=== PATIENT | male | born 1985 | race Caucasian/White ===

== ENCOUNTER 2019-10-03 02:24 | Emergency (ER) | payer SELFPAY ==
[2019-10-03 02:57] LABS: Protime INR 0.88
[2019-10-03 03:10] LABS: Absolute Lymphocytes (CBC) 2.4 K/uL (0.7-4.9); Basophils % 0.7 % (0-1.3); Lymphocytes % 51.5 % (15.3-44.8); MPV 8.2 fL (7.6-11.3); RBC Red Blood Cell Count 4.56 M/uL (4.33-5.43)
[2019-10-03 03:17] LABS: ALT/SGPT 109 U/L (12-78); AST/SGOT 54 U/L (15-37); Albumin 3.9 g/dL (3.4-5.0); Alkaline Phosphatase 41 U/L (45-117); BUN Blood Urea Nitrogen 8 mg/dL (7-18); Bicarbonate 27 mmol/L (21-32); Bilirubin Direct < 0.1 mg/dL (0-0.2); Bilirubin Total 0.2 mg/dL (0.2-1.0); Glucose Level 101 mg/dL (74-106); Magnesium 2.4 mg/dL (1.8-2.4); NT PRO-BNP 38 pg/mL (<125); Potassium 3.4 mmol/L (3.5-5.1); Protein, Total 7.2 g/dL (6.4-8.2); Sodium Level 148 mmol/L (136-145); Troponin (Emerg Dept Use Only) < 0.02 ng/mL (0.0-0.045)
[2019-10-03 03:24] LABS: Blood Morphology Comment NOT SEEN (NOT SEEN); Platelet Estimate ADEQ
[2019-10-03] MEDS ORDERED: POTASSIUM CL SA 10 MEQ TAB PO ONE (03:49)
--- NOTE | 2019-10-03 03:58 | EDPHYS ---
Physician Documentation [facility] Name: Philip Kim Age: 34 yrs Sex: Male : 1985 Arrival Date: 10/03/2019 Time: 02:31 Bed 14 Private MD: ED Physician Michele Astorga HPI: 10/02 02:39 This 34 yrs old Male presents to ER via EMS with unknown complaint. pkl 02:39 The patient or guardian reports chest pain that is located primarily in the left side pkl chest. The pain does not radiate. Associated signs and symptoms: Pertinent positives: shortness of breath. The chest pain is described as sharp. Historical: - Allergies: 02:41 No Known Allergies; fc - Home Meds: 02:41 None [Active]; fc - PMHx: 02:41 CHF; fc - PSHx: 02:41 Jaw cell; heart cath; fc - Immunization history:: Last tetanus immunization: unknown, Flu vaccine is not up to date. - Social history:: Smoking status: Patient reports the use of cigarette tobacco products, smokes one pack cigarettes per day. Patient/guardian denies using alcohol, street drugs. ROS: 02:39 Eyes: Negative for injury, pain, redness, and discharge, ENT: Negative for injury, pkl pain, and discharge, Neck: Negative for injury, pain, and swelling. 02:39 Cardiovascular: Positive for chest pain. 02:39 Respiratory: Positive for shortness of breath. 02:39 Abdomen/GI: Negative for abdominal pain, nausea, vomiting, and diarrhea. 02:39 Back: Negative for acute changes. 02:39 : Negative for urinary symptoms. 02:39 MS/extremity: Negative for acute changes. 02:39 Skin: Negative for rash. 02:39 Neuro: Negative for altered mental status. Exam: 02:39 Head/Face: Normocephalic, atraumatic. Eyes: Pupils equal round and reactive to light, pkl extra-ocular motions intact. Lids and lashes normal. Conjunctiva and sclera are non-icteric and not injected. Cornea within normal limits. Periorbital areas with no swelling, redness, or edema. ENT: Nares patent. No nasal discharge, no septal abnormalities noted. Tympanic membranes are normal and external auditory canals are clear. Oropharynx with no redness, swelling, or masses, exudates, or evidence of obstruction, uvula midline. Mucous membranes moist. Neck: Trachea midline, no thyromegaly or masses palpated, and no cervical lymphadenopathy. Supple, full range of motion without nuchal rigidity, or vertebral point tenderness. No Meningismus. Chest/axilla: Normal chest wall appearance and motion. Nontender with no deformity. No lesions are appreciated. Cardiovascular: Regular rate and rhythm with a normal S1 and S2. No gallops, murmurs, or rubs. Normal PMI, no JVD. No pulse deficits. Respiratory: Lungs have equal breath sounds bilaterally, clear to auscultation and percussion. No rales, rhonchi or wheezes noted. No increased work of breathing, no retractions or nasal flaring. Abdomen/GI: Soft, non-tender, with normal bowel sounds. No distension or tympany. No guarding or rebound. No evidence of tenderness throughout. Back: No spinal tenderness. No costovertebral tenderness. Full range of motion. Skin: Warm, dry with normal turgor. Normal color with no rashes, no lesions, and no evidence of cellulitis. MS/ Extremity: Pulses equal, no cyanosis. Neurovascular intact. Full, normal range of motion. Neuro: Awake and alert, GCS 15, oriented to person, place, time, and situation. Cranial nerves II-XII grossly intact. Motor strength 5/5 in all extremities. Sensory grossly intact. Cerebellar exam normal. Normal gait. Vital Signs: 02:17 BP 134 / 91; Pulse 90; Resp 20; Temp 98.2(O); Pulse Ox 96% on R/A; Weight 83.91 kg (R); fc Height 5 ft. 9 in. (175.26 cm) (R); Pain 3/10; 04:15 BP 130 / 92; Pulse 85; Resp 18; Temp 98.6; Pulse Ox 98% on R/A; ao 02:17 Body Mass Index 27.32 (83.91 kg, 175.26 cm) fc MDM: 02:34 Patient medically screened. pkl 03:56 Data reviewed: vital signs, nurses notes, lab test result(s), EKG, radiologic studies, pkl plain films. 10/02 02:32 Order name: Basic Metabolic Panel; Complete Time: 03:32 ar5 10/02 02:32 Order name: CBC with Diff; Complete Time: 03:32 ar5 10/02 02:32 Order name: LFT's; Complete Time: 03:32 ar5 10/02 02:32 Order name: Magnesium; Complete Time: 03:32 ar5 10/02 02:32 Order name: NT PRO-BNP; Complete Time: 03:32 ar5 10/02 02:32 Order name: PT-INR; Complete Time: 03:32 ar10/02 02:32 Order name: Troponin (emerg Dept Use Only); Complete Time: 03:32 ar5 10/02 02:32 Order name: EKG; Complete Time: 02:33 ar5 10/02 02:35 Order name: D-Dimer; Complete Time: 03:32 pkl 10/02 02:35 Order name: UDS pkl 10/02 03:23 Order name: Manual Differential; Complete Time: 03:32 EDMS 10/02 03:37 Order name: CXR XRAY fc 10/02 02:32 Order name: Cardiac monitoring; Complete Time: 03:05 ar10/02 02:32 Order name: EKG - Nurse/Tech; Complete Time: 02:32 ar5 10/02 02:32 Order name: IV Saline Lock; Complete Time: 03:05 ar10/02 02:32 Order name: Labs collected and sent; Complete Time: 03:05 10/02 02:32 Order name: O2 Per Protocol; Complete Time: 03:05 ar10/02 02:32 Order name: O2 Sat Monitoring; Complete Time: 03:05 ar5 Administered Medications: 03:52 Drug: K-Dur 20 mEq Route: PO; ao 03:55 Follow up: Response: No adverse reaction ao Disposition: 10/03/19 03:57 Discharged to Home. Impression: Chest pain. Elevated liver functions. - Condition is Stable. - Medication Reconciliation Form, Thank You Letter, Antibiotic Education, Prescription Opioid Use form. - Follow up: Private Physician; When: 2 - 3 days; Reason: Re-evaluation by your physician. - Problem is new. - Symptoms have improved. Signatures: Dispatcher [employer] Michele Cox MD MD pkl Chretien, Felicia, RN RN fc Ortiz, Alex RN RN Soheila Sheehan ar5 Corrections: (The following items were deleted from the chart) 02:48 02:33 Chest Single View+RAD.RAD.BRZ ordered. EDMS EDMS 04:18 03:57 10/03/2019 03:57 Discharged to Home. Impression: Chest pain. Elevated liver ao functions. Condition is Stable. Forms are Medication Reconciliation Form, Thank You Letter, Antibiotic Education, Prescription Opioid Use. Follow up: Private Physician; When: 2 - 3 days; Reason: Re-evaluation by your physician. Problem is new. Symptoms have improved. pkl
--- NOTE | 2019-10-03 03:58 | ER ---
Nurse's Notes [facility] Name: Philip Kim Age: 34 yrs Sex: Male : 1985 Arrival Date: 10/03/2019 Time: 02:31 Bed 14 Private MD: Diagnosis: Chest pain. Elevated liver functions Presentation: 10/02 02:17 Chief complaint: Patient states: that he has been having chest pain to left side x 2 fc days. Tonight at 0145 is got worse along with shortness of breath. Coronavirus screen: Proceed with normal triage. Ebola Screen: Patient negative for fever greater than or equal to 101.5 degrees Fahrenheit, and additional compatible Ebola Virus Disease symptoms Patient denies exposure to infectious person. Patient denies travel to an Ebola-affected area in the 21 days before illness onset. Initial Sepsis Screen: Does the patient meet any 2 criteria? No. Patient's initial sepsis screen is negative. Does the patient have a suspected source of infection? No. Patient's initial sepsis screen is negative. Risk Assessment: Do you want to hurt yourself or someone else? Patient reports no desire to harm self or others. Onset of symptoms was October 01, 2019. Care prior to arrival: Medication(s) given: ASA, 81 mg, x 4, Nitroglycerin, 0.4 mg SL x 2, IV initiated. 18 GA, in the left forearm. Transition of care: [employer] 02:17 Method Of Arrival: EMS: [facility] 02:17 Acuity: REJI 3 fc Historical: - Allergies: 02:41 No Known Allergies; fc - Home Meds: 02:41 None [Active]; fc - PMHx: 02:41 CHF; fc - PSHx: 02:41 Jaw cell; heart cath; fc - Immunization history:: Last tetanus immunization: unknown, Flu vaccine is not up to date. - Social history:: Smoking status: Patient reports the use of cigarette tobacco products, smokes one pack cigarettes per day. Patient/guardian denies using alcohol, street drugs. Screenin:17 Abuse screen: Denies threats or abuse. Nutritional screening: No deficits noted. Tuberculosis screening: No symptoms or risk factors identified. Fall Risk None identified. Assessment: 03:05 General: Appears in no apparent distress. comfortable, Behavior is calm, cooperative, ao appropriate for age. Pain:. Neuro: Level of Consciousness is awake, alert, obeys commands. Cardiovascular: No deficits noted. Respiratory: Airway is patent Respiratory effort is even, unlabored, Respiratory pattern is regular, symmetrical. GI: Abdomen is non-distended. : No deficits noted. EENT: No deficits noted. Derm: Skin is intact, Skin is pink, warm \T\ dry. normal, Skin temperature is warm. Musculoskeletal: Circulation, motion, and sensation intact. Range of motion: intact in all extremities. 04:15 Reassessment: DC instructions given to patient and law enforcement. Patient agree with ao POC and to follow up. Vital Signs: 02:17 BP 134 / 91; Pulse 90; Resp 20; Temp 98.2(O); Pulse Ox 96% on R/A; Weight 83.91 kg (R); fc Height 5 ft. 9 in. (175.26 cm) (R); Pain 3/10; 04:15 BP 130 / 92; Pulse 85; Resp 18; Temp 98.6; Pulse Ox 98% on R/A; ao 02:17 Body Mass Index 27.32 (83.91 kg, 175.26 cm) ED Course: 02:17 Arm band placed on Patient placed in an exam room, on a stretcher. fc 02:17 Patient has correct armband on for positive identification. Bed in low position. Call light in reach. Side rails up X2. marine driller on. Pulse ox on. NIBP on. 02:17 Maintain EMS IV. Dressing intact. Good blood return noted. Site clean \T\ dry. Gauge \T\ fc site: 18 gauge to left forearm. 02:31 Patient arrived in ED. fc 02:34 Michele Astorga MD is Attending Physician. pkl 02:35 Stephane Nye, JESSI is Primary Nurse. ao 02:37 Triage completed. fc 03:48 CXR XRAY In Process Unspecified. EDMS 04:17 No provider procedures requiring assistance completed. IV discontinued, intact, ao bleeding controlled, No redness/swelling at site. Pressure dressing applied. Administered Medications: 03:52 Drug: K-Dur 20 mEq Route: PO; ao 03:55 Follow up: Response: No adverse reaction ao Outcome: 03:57 Discharge ordered by . pkl 04:17 Discharged to Law Enforcement ao 04:17 Condition: stable 04:17 Discharge instructions given to patient, police, Instructed on discharge instructions, follow up and referral plans. Demonstrated understanding of instructions, follow-up care, medications. 04:18 Patient left the ED. ao Signatures: Dispatcher [employer] EDMichele Franklin MD MD pkl Chretien, Felicia, RN RN Stephane Sierra RN RN ao Corrections: (The following items were deleted from the chart) 02:48 02:46 In radiology for Chest Single View+RAD.RAD.BRZ. ED EDMS
[2019-10-03 04:22] VITALS: BP 130/92; TEMP 98.6; O2SAT 98
[2019-10-03 04:27] LABS: Barbiturates NEGATIVE (NEGATIVE); Benzodiazepines NEGATIVE (NEGATIVE); Cocaine NEGATIVE (NEGATIVE); METHAMPHETAM NEGATIVE (NEGATIVE); Methadone NEGATIVE (NEGATIVE); Opiates NEGATIVE (NEGATIVE); Phencyclidine NEGATIVE (NEGATIVE); THC Cannibis POSITIVE (NEGATIVE)
--- NOTE | 2019-10-03 08:32 | RAD REPORT ---
EXAM DESCRIPTION: RAD - Chest Single View - 10/03/2019 3:47 am CLINICAL HISTORY: CHEST PAIN Chest pain. COMPARISON: No comparisons FINDINGS: Portable technique limits examination quality. The lungs are grossly clear. The heart is normal in size. No displaced fractures. IMPRESSION: No acute intrathoracic process suspected.
--- NOTE | 2019-10-03 11:51 | EKG ---
Test Date: 2019-10-03 Test Time: 02:25:45 [place]aker Continuous Churn: MEASUREMENT RESULTS: Intervals: Rate: 86 VA: 164 QRSD: 102 QT: 360 QTc: 430 [place]: P: 30 VA: 164 QRS: 44 T: 56 INTERPRETIVE STATEMENTS: Normal sinus rhythm Normal ECG No previous ECG available for comparison Electronically Signed On 10-03-19 11:50:08 CDT by Gerry Edwards
== END 2019-10-03 04:18 | disposition home or self-care (01) ==
LOC: ER 02:24
DX: R07.9 Chest pain, unspecified (principal); R94.5 Abnormal results of liver function studies; F17.210 Nicotine dependence, cigarettes, uncomplicated
CPT/HCPCS: 36415; 71045; 80048; 80076; 80307; 83735; 83880; 84484; 85025; 85379; 85610; 93005; 99284

== ENCOUNTER 2020-10-14 22:48 | Emergency (ER) | payer SELFPAY ==
[2020-10-14] MEDS ORDERED: LIDOCAINE 1% MPF 5 ML VIAL ONE (23:18)
[2020-10-14] MEDS ORDERED: HYDROCODONE/APAP 7.5/325 MG TAB ONE (23:19)
[2020-10-14] MEDS ORDERED: TETANUS & DIPHTHERIA TOX,ADULT 0.5 ML VIAL ONE (23:19)
--- NOTE | 2020-10-14 23:57 | ER ---
Nurse's Notes [facility] Name: Philip Kim Age: 35 yrs Sex: Male : 1985 Arrival Date: 10/14/2020 Time: 22:51 Bed 6 Private MD: Diagnosis: Laceration without foreign body of left forearm Presentation: 10/14 22:51 Chief complaint: EMS states: while installing some wiring he cut himself with a box rr5 cutter approximate 1/2 cm cut wound on his left forearm. he complaints that he cannot teleprinter firmly or put pressure . Coronavirus screen: Client denies travel out of the [place] in the last 14 days. At this time, the client does not indicate any symptoms associated with coronavirus-19. Ebola Screen: Patient negative for fever greater than or equal to 101.5 degrees Fahrenheit, and additional compatible Ebola Virus Disease symptoms Patient denies exposure to infectious person. Patient denies travel to an Ebola-affected area in the 21 days before illness onset. Complicating Factors: There are no complicating factors for this patient. Initial Sepsis Screen: Does the patient meet any 2 criteria? No. Patient's initial sepsis screen is negative. Does the patient have a suspected source of infection? No. Patient's initial sepsis screen is negative. Risk Assessment: Do you want to hurt yourself or someone else? Patient reports no desire to harm self or others. Onset of symptoms was October 14, 2020. 22:51 Method Of Arrival: EMS: [facility] rr5 22:51 Acuity: REJI 3 rr5 Historical: - Allergies: 22:54 No Known Allergies; rr5 - Home Meds: 22:54 None [Active]; rr5 - PMHx: 22:54 CHF; rr5 - PSHx: 22:54 None; rr5 - Immunization history:: Adult Immunizations not up to date, Last tetanus immunization: unknown. - Social history:: Smoking status: Patient reports the use of cigarette tobacco products, smokes one pack cigarettes per day. Patient/guardian denies using street drugs. Screenin:56 Abuse screen: Denies threats or abuse. Denies injuries from another. Nutritional rr5 screening: No deficits noted. Tuberculosis screening: No symptoms or risk factors identified. Fall Risk None identified. Total Granados Fall Scale indicates No Risk (0-24 pts). Assessment: 22:55 General: Appears in no apparent distress. comfortable, Behavior is calm, cooperative, rr5 appropriate for age. Pain: Complains of pain in dorsal aspect of left forearm Pain currently is 3 out of 10 on a pain scale. Quality of pain is described as aching, Pain began suddenly, Is intermittent. Neuro: Level of Consciousness is awake, alert, obeys commands, Oriented to person, place, time. Cardiovascular: Capillary refill < 3 seconds Patient's skin is warm and dry. Pulses are palpable in left radial artery. Respiratory: Airway is patent is compromised Respiratory effort is even, unlabored, Respiratory pattern is. Derm: Skin temperature is warm Wound noted dorsal aspect of left forearm Wound is cut wound approximate 1/2 cm. Musculoskeletal: Capillary refill < 3 seconds. Injury Description: Laceration sustained to dorsal aspect of left forearm is clean, 0.5 to 2.5 cm long, not bleeding. 10/15 00:06 Reassessment: Patient appears in no apparent distress at this time. Patient is alert, rr5 oriented x 3, equal unlabored respirations, skin warm/dry/pink. discharge instruction given and explained without complaints made. Vital Signs: 10/14 22:51 BP 132 / 83; Pulse 80; Resp 16; Temp 99; Pulse Ox 100% ; Weight 74.84 kg; Height 5 ft. rr5 9 in. (175.26 cm); Pain 3/10; 10/15 00:04 BP 137 / 85; Pulse 75; Resp 19; Pulse Ox 98% ; rr5 10/14 22:51 Body Mass Index 24.37 (74.84 kg, 175.26 cm) rr5 ED Course: 10/14 22:51 Patient arrived in ED. rr5 22:54 Triage completed. rr5 22:55 Arm band placed on right wrist. rr5 22:57 Patient has correct armband on for positive identification. Bed in low position. Call rr5 light in reach. 23:00 Guillermo Li PA is PHCP. cp 23:00 Guillermo Gonzales MD is Attending Physician. cp 23:02 patient's girlfriend Katlyn called to leave her number. [phone]/ She asks that we eb call her at least 15 to 20 minutes before discharge so she can come get him/. 23:09 Car French, RN is Primary Nurse. rr5 23:10 Wound care: to laceration located on dorsal aspect of left forearm was cleaned with rr5 Hibiclens, dressed with 4X4s, Patient tolerated well. 23:29 XRAY Forearm LEFT In Process Unspecified. EDMS 23:37 X-ray completed. Portable x-ray completed in exam room. Patient tolerated procedure mh1 well. 23:50 Assist provider with laceration repair on left arm and dorsal aspect of left forearm rr5 that was 2.5 cm. or less using sutures. Set up tray. Performed by Guillermo SPEAR Dressed with 4X4s, Kerlix, Neosporin, Patient tolerated well. 23:50 Patient did not have IV access during this emergency room visit. rr5 Administered Medications: 23:09 Drug: Hydrocodone-Acetaminophen (7.5 mg-325 mg) 1 tabs {Note: rass 0.} Route: PO; rr5 10/15 00:06 Follow up: Response: No adverse reaction; RASS: Alert and Calm (0) rr5 10/14 23:10 Drug: Tetanus-Diphtheria Toxoid Adult 0.5 ml {Rod Piler: [employer]. Exp: rr5 07/02/2022. Lot #: [id number]. } Route: IM; Site: left deltoid; 10/15 00:06 Follow up: Response: No adverse reaction rr5 10/14 23:50 Drug: Lidocaine-Epinephrine -1%: (1:100,000) 5 ml Volume: 20 ml; Route: Infiltration; rr5 10/15 00:06 Follow up: Response: No adverse reaction rr5 Outcome: 10/14 23:57 Discharge ordered by MD. colby 10/15 00:04 Discharged to home ambulatory. rr5 Condition: stable Discharge instructions given to patient, Instructed on discharge instructions, follow up and referral plans. medication usage, Demonstrated understanding of instructions, follow-up care, medications, Prescriptions given X 1. 00:07 Patient left the ED. rr5 Signatures: Dispatcher [employer] EDMS [facility] Guillermo Li PA PA cp Botello, Elizabeth eb Roque, Raymond, RN RN rr5
--- NOTE | 2020-10-14 23:57 | EDPHYS ---
Physician Documentation [facility] Name: Philip Kim Age: 35 yrs Sex: Male : 1985 Arrival Date: 10/14/2020 Time: 22:51 Bed 6 Private MD: ED Physician Guillermo Gonzales HPI: 10/14 23:10 This 35 yrs old Male presents to ER via EMS with complaints of Laceration To cp Arm. 23:10 The patient has a laceration occurred at work, The injury was accidental, using box cp cutter. The laceration(s) is(are) located on the volar side left forearm. Onset: The symptoms/episode began/occurred just prior to arrival. Associated signs and symptoms: Pertinent positives: heavy bleeding, Pertinent negatives: numbness distal to injury, suspected foreign body. Historical: - Allergies: 22:54 No Known Allergies; rr5 - Home Meds: 22:54 None [Active]; rr5 - PMHx: 22:54 CHF; rr5 - PSHx: 22:54 None; rr5 - Immunization history:: Adult Immunizations not up to date, Last tetanus immunization: unknown. - Social history:: Smoking status: Patient reports the use of cigarette tobacco products, smokes one pack cigarettes per day. Patient/guardian denies using street drugs. ROS: 23:12 Skin: Positive for laceration(s), of the volar side left forearm. cp 23:12 Constitutional: Negative for fever. cp 23:12 Neuro: Negative for numbness, weakness. 23:12 All other systems are negative. Exam: 23:15 Constitutional: The patient appears in no acute distress, alert, awake, non-toxic, well cp developed, well nourished, uncomfortable. 23:15 Head/Face: Normocephalic, atraumatic. cp 23:15 Chest/axilla: Inspection: normal. 23:15 Cardiovascular: Rate: normal. 23:15 Respiratory: the patient does not display signs of respiratory distress, Respirations: normal, no use of accessory muscles, labored breathing, is not present. 23:15 Abdomen/GI: Exam negative for discomfort, distension, guarding, Inspection: abdomen appears normal. 23:15 Musculoskeletal/extremity: Extremities: grossly normal except: noted in the volar side left forearm: laceration, pain, swelling, tenderness, ROM: limited passive range of motion due to pain, in the left hand and left wrist, Pulses: noted to be 2+ in the left radial artery, Sensation intact. Tendon exam: specific tendon testing normal through active and passive range of motion Vital Signs: 22:51 BP 132 / 83; Pulse 80; Resp 16; Temp 99; Pulse Ox 100% ; Weight 74.84 kg; Height 5 ft. rr5 9 in. (175.26 cm); Pain 3/10; 10/15 00:04 BP 137 / 85; Pulse 75; Resp 19; Pulse Ox 98% ; rr5 10/14 22:51 Body Mass Index 24.37 (74.84 kg, 175.26 cm) rr5 Laceration: 10/14 23:55 Wound Repair of 2cm ( 0.8in ) subcutaneous laceration to volar side of left forearm. cp Linear shaped.. Distal neuro/vascular/tendon intact. Anesthesia: Local anesthetic administered with 6 mls of 1% lidocaine w/ Epi. Wound prep: Moderate cleansing by me, Wound irrigation by me. Skin closed with 2 4-0 Prolene using simple sutures and sterile technique. Dressed with Bacitracin, 4x4's. Patient tolerated well. MDM: 23:03 Patient medically screened. cp 23:20 Differential diagnosis: superficial laceration, tendon injury, vascular injury. cp 23:57 Data reviewed: vital signs, nurses notes, radiologic studies, plain films, and as a cp result, I will discharge patient. 23:57 Test interpretation: by ED physician or midlevel provider: xrays of left forearm cp negative for fracture. Counseling: I had a detailed discussion with the patient and/or guardian regarding: the historical points, exam findings, and any diagnostic results supporting the discharge/admit diagnosis, radiology results, to return to the emergency department if symptoms worsen or persist or if there are any questions or concerns that arise at home. Response to treatment: the patient's symptoms have markedly improved after treatment, and as a result, I will discharge patient. 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 Exp: rr5 07/02/2022. Lot #: [id number]. } Route: IM; Site: left deltoid; 10/15 00:06 Follow up: Response: No adverse reaction rr5 10/14 23:50 Drug: Lidocaine-Epinephrine -1%: (1:100,000) 5 ml Volume: 20 ml; Route: Infiltration; rr5 10/15 00:06 Follow up: Response: No adverse reaction rr5 Disposition: 00:15 Chart complete. cp 07:01 Co-signature as Attending Physician, Guillermo Gonzales MD I agree with the assessment and [facility] plan of care. Disposition: 10/14/20 23:57 Discharged to Home. Impression: Laceration without foreign body of left forearm. - Condition is Stable. - Discharge Instructions: Laceration Care, Adult. - Prescriptions for Keflex 500 mg Oral Capsule - take 1 capsule by ORAL route every 8 hours for 10 days; 30 capsule. - Medication Reconciliation Form, Thank You Letter, Antibiotic Education, Prescription Opioid Use form. - Follow up: Private Physician; When: 7 - 10 days; Reason: Staple/Suture removal. - Problem is new. - Symptoms have improved. Signatures: Dispatcher [employer] [facility] Guillermo Gonzales MD MD cha Page, Corey, PA PA cp Roque, Raymond, RN RN rr5 Corrections: (The following items were deleted from the chart) 00:07 10/14 23:57 10/14/2020 23:57 Discharged to Home. Impression: Laceration without foreign rr5 body of left forearm. Condition is Stable. Forms are Medication Reconciliation Form, Thank You Letter, Antibiotic Education, Prescription Opioid Use. Follow up: Private Physician; When: 7 - 10 days; Reason: Staple/Suture removal. Problem is new. Symptoms have improved. cp
[2020-10-14] MEDS ORDERED: LIDOCAINE 1% W/EPI 1:100,000 MDV 20 ML VIAL ONE (23:58)
[2020-10-15 00:19] VITALS: TEMP 99
[2020-10-15 00:20] VITALS: BP 137/85; O2SAT 98
--- NOTE | 2020-10-15 08:42 | RAD REPORT ---
EXAM DESCRIPTION: RAD - Forearm Left - 10/14/2020 11:34 pm CLINICAL HISTORY: laceration;Pain COMPARISON: No comparisons FINDINGS: Laceration is seen along the palmar aspect of the distal forearm. No fracture or radiopaqu e foreign body evident. No soft tissue gas.
== END 2020-10-15 00:07 | disposition home or self-care (01) ==
LOC: ER 22:48
PROC: 0HQEXZZ Repair Left Lower Arm Skin, External Approach (ICD-10-PCS; principal; 2020-10-14)
DX: S51.812A Laceration without foreign body of left forearm, initial encounter (principal); W26.0XXA Contact with knife, initial encounter; Y99.0 Civilian activity done for income or pay; F17.210 Nicotine dependence, cigarettes, uncomplicated; I50.9 Heart failure, unspecified
CPT/HCPCS: 90714

== ENCOUNTER 2021-10-10 01:54 | Emergency (ER) | payer SELFPAY ==
--- OUTSIDE RECORDS SUMMARY | 2021-10-10 01:57 | XMS REPORT | Continuity of Care Document ---
:1985 Author Organization [facility] t Address [address] [place] [address] Care Team Providers Name Role Phone Pcp, Does Not Have A Primary Care Physician Doctor Unassigned, Name Attending Clinician Unavailable Poonam Liam RODRIGUEZ Attending Clinician POONAM B Attending Clinician Unavailable Problems This patient has no known problems. Allergies, Adverse Reactions, Alerts Allergy Allergy Status Severity Reaction(s) Onset Inactive Treating Comm ents Source Name Type Date Date Clinician NO KNOWN Drug Active Univers ALLERGIE Class ity of S [facility] Social History Social Habit Start Date Stop Date Quantity Comments Source Exposure to Not sure [facility] SARS-CoV-2 (event) [facility] Sex Assigned At [address] 1985 [facility] 00:00:00 00:00:00 [facility] Smoking Status Start Date Stop Date Source Unknown if ever smoked [facility] Medications Ordered Filled Start Stop Current Ordering Indication Dosage Frequency Signature Comments Components Source Medication Medication Date Date Medication? Clinician (SIG) Name Name No known No Univers medications -30 ity of 01:05: [place] [facility] No known No [facility] No known No [facility] Vital Signs Vital Name Observation Time Observation Value Comments Source Systolic blood 2020-12-27 07:00:00 129 mm[Hg] Univer sity of pressure [facility] Diastolic blood 2020-12-27 07:00:00 74 mm[Hg] Unive rsity of [facility] Heart rate 2020-12-27 07:00:00 58 /min [facility] Respiratory rate 2020-12-27 07:00:00 17 /min [facility] Oxygen saturation in 2020-12-27 07:00:00 98 /min [facility] Arterial blood by [facility] Pulse oximetry [place] Body height 2020-12-27 06:04:00 175.3 cm [facility] Body weight 2020-12-27 06:04:00 79.379 kg [facility] BMI 2020-12-27 06:04:00 25.84 kg/m2 [facility] Procedures Procedure Date / Time Performed Performing Clinician Sourc e REFERRAL- 2021-06-08 06:01:00 Doctor Steph, No Deyaniraer [facility] REQUEST/RESPONSE Name [facility] XR CHEST 1 VW 2020-12-27 06:30:22 Papo Ortiz [facility] LIPASE 2020-12-27 06:10:00 Papo Ortiz [facility] TROPONIN I 2020-12-27 06:10:00 Papo Ortiz [facility] COMP. METABOLIC PANEL 2020-12-27 06:10:00 Papo Ortiz [facility] ([id number]) [facility] CBC WITH DIFF 2020-12-27 06:10:00 Papo Ortiz [facility] CONSENT/REFUSAL FOR 2020-12-27 05:55:06 [facility] Name [facility] TREATMENT NOTICE OF PRIVACY 2020-12-27 05:54:10 Doctor Unassigned, No Univ [facility] PRACTICES Name [facility] Encounters Start End Encounter Admission Attending Care Care Encounter Source Date/Time Date/Time Type Type Clinicians Facility Department ID 2021-06-08 2021-06-08 Orders Doctor GROVES [id number] Univers 00:00:00 00:00:00 Only UnassSEAN lawson [id number] ity of [place] [facility] [id number] Anurag as [id number] [facility] 009 Branch 2020-12-27 2020-12-27 Emergency JOSÉ Ortiz [id number] Univers 00:59:00 02:27:00 Papo Parsons [id number] i evin [facility] [id number] [facility] [id number] [place] [id number] Branch 2020-12-27 2020-12-27 Emergency X POONAM LASPENSER ERT [id number] Univers 00:59:00 00:59:00 PAPO ity of [facility] Results Test Description Test Time Test Comments Results Result Comments Source TROPONIN I 2020-12-27 06:57:02 Test Item Value Reference Range Interpretation Comme nts TROPONIN I (test code = 0.003 ng/mL See_Comment [Au tomated message] The 9887865179) system which ge nerated this result tra nsmitted reference range : <=0.034. The reference r dung was not used to int erpret this result as normal/abnormal . BIBI (test code = BIBI) Reference (Normal) Range (defined by the 99th percentile reference limit): <= 0.034 ng/mL Note: Cardiac troponin begins to rise 3-4 hours after the onset of ischemia. Repeat in 4-6 hours if the sample was drawn within 3-4 hours of the onset of the symptom and found normal. Diagnosis of myocardial injury is made with acute changes in cTn concentrations with at least one serial sample above the 99th percentile upper reference limit (URL), taken together with the patient's clinical presentation. Biotin has been reported to cause a negative bias, interpret results relative to patient's use of biotin. Lab Interpretation Normal (test code = 42945-2) [id number] 06:57:02 Test Item Value Reference Range Interpretation Comments TROPONIN I (test code = 0.003 ng/mL See_Comment [Au tomated 7293104304) message] The sy stem which generated this result transmitted reference range : <=0.034. The reference range was not used to interpret this result as normal/abnormal . BIBI (test code = BIBI) Lab Interpretation Normal (test code = 42224-1) [facility] ([id number][facility]2020-12-27 06:35:01 Test Item Value Reference Range Interpretation Comments NA (test code = 138 mmol/L 135-145 7320201151) K (test code = 3.9 mmol/L 3.5-5.0 7345102361) CL (test code = 105 mmol/L 98-108 7310515363) CO2 TOTAL (test code = 27 mmol/L 23-31 9436471001) AGAP (test code = 2-16 0774411480) BUN (test code = 18 mg/dL 7-23 0097092166) GLUCOSE (test code = 108 mg/dL 70-110 0449551298) CREATININE (test code = 0.99 mg/dL 0.60-1.25 6700116279) TOTAL BILI (test code = 0.3 mg/dL 0.1-1.8 1706833524) CALCIUM (test code = 9.6 mg/dL 8.6-10.6 4395178187) T PROTEIN (test code = 7.4 g/dL 6.3-8.2 4154569102) ALBUMIN (test code = 4.4 g/dL 3.5-5.0 8885353958) ALK PHOS (test code = 49 U/L 34-122 3323689840) ALTv (test code = 107 U/L 5-50 H 1742-6) AST(SGOT) (test code = 64 U/L 13-40 H 0796488286) eGFR (test code = mL/min/1.73m2 8942259296) BIBI (test code = BIBI) Association of Glomerular Filtration Rate (GFR) and Staging of Kidney Disease* + --+ --+ ------+| GFR (mL/min/1.73 m2) ?| With Kidney Damage ?| ?Without Kidney Damage+ --------+ --------+ +| ?>90 ?| ?Stage one ?| ? Normal ?+ ---+ ---+ -------+| ?60-89 ?| ?Stage two ?| ? Decreased GFR ? + --+ --+ ------+| ?30-59 ?| ?Stage three ?| ? Stage three ? + --+ --+ ------+| ?15-29 ?| ?Stage four ? | ? Stage four ?+ ---+ ---+ -------+| ?<15 (or dialysis) ? ?| ?Stage five ? | ? Stage five ?+ ---+ ---+ -------+ *Each stage assumes the associated GFR level has been in effect for at least three months. ?Stages 1 to 5, with or without kidney disease, indicate chronic kidney disease. Notes: Determination of stages one and two (with eGFR >59mL/min/1.73 m2) requires estimation of kidney damage for at least three months as defined by structural or functional abnormalities of the kidney, manifested by either:Pathological abnormalities or Markers of kidney damage (including abnormalities in the composition of the blood or urine or abnormalities in imaging tests). Lab Interpretation Abnormal (test code = 13151-9) [facility] ([id number])2020-12-27 06:35:01 Test Item Value Reference Range Interpretation Comments NA (test code = 3580848343) 138 mmol/L 135-145 K (test code = 7577698034) 3.9 mmol/L 3.5-5.0 CL (test code = 2824871223) 105 mmol/L 98-108 CO2 TOTAL (test code = 5783173227) 27 mmol/L 23-31 AGAP (test code = 9728956815) 2-16 BUN (test code = 4862165396) 18 mg/dL 7-23 GLUCOSE (test code = 9671312738) 108 mg/dL 70-110 CREATININE (test code = 0.99 mg/dL 0.60-1.25 3104608532) TOTAL BILI (test code = 0.3 mg/dL 0.1-1.1 6742052924) CALCIUM (test code = 8456461811) 9.6 mg/dL 8.6-10.6 T PROTEIN (test code = 5176914418) 7.4 g/dL 6.3-8.2 ALBUMIN (test code = 1884270811) 4.4 g/dL 3.5-5.0 ALK PHOS (test code = 7277549714) 49 U/L 34-122 ALTv (test code = 1742-6) 107 U/L 5-50 H AST(SGOT) (test code = 6124654515) 64 U/L 13-40 H eGFR (test code = 9872182207) mL/min/1.73m2 BIBI (test code = BIBI) Lab Interpretation (test code = Abnormal 33133-0) [facility] [id number] 06:34:26 Test Item Value Reference Range Interpretation Comments LIPASE (test code = 3551921796) 75 U/L 0-220 Lab Interpretation (test code = Normal 77510-7) [facility] [id number] 06:34:26 Test Item Value Reference Range Interpretation Comments LIPASE (test code = 0427155092) 75 U/L 0-220 Lab Interpretation (test code = Normal 37903-3) [facility] WITH [id number] 06:17:22 Test Item Value Reference Range Interpretation Comments WBC (test code = See_Comment [Automated 6690-2) message] The sy stem which generated this result transmitted reference range : 4.20 - 10.70 10*3/?L. The reference range was not used to interpret this result as normal/abnormal . RBC (test code = See_Comment [Automated 789-8) message] The sy stem which generated this result transmitted reference range : 4.26 - 5.52 10*6/?L. The reference range was not used to interpret this result as normal/abnormal . HGB (test code = 14.5 g/dL 12.2-16.4 718-7) HCT (test code = 43.8 % 38.4-49.3 4544-3) MCV (test code = 93.2 fL 81.7-95.6 787-2) MCH (test code = 30.9 pg 26.1-32.7 785-6) MCHC (test code = 33.1 g/dL 31.2-35.0 786-4) RDW-SD (test code = 43.8 fL 38.5-51.6 56764-2) RDW-CV (test code = 12.7 % 12.1-15.4 788-0) PLT (test code = See_Comment L [Automated 777-3) message] The sy stem which generated this result transmitted reference range : 150 - 328 10*3/ ?L. The reference r dung was not used to interpret this result as normal/abnormal . MPV (test code = 9.9 fL 9.8-13.0 52525-7) NRBC/100 WBC (test See_Comment [Automat ed code = 3207436123) message] The system which generated this result transmitted reference range : 0.0 - 10.0 /100 WBCs. The refer ence range was not u sed to interpret th is result as normal/abnormal . NRBC x10^3 (test code <0.01 See_Comment [Auto mated = 5661233238) message] The s ystem which generated this result transmitted reference range : 10*3/?L. The reference range was not used to interpret this result as normal/abnormal . GRAN MAT (NEUT) % 48.6 % (test code = 770-8) IMM GRAN % (test code 0.40 % = 0033981870) LYMPH % (test code = 39.9 % 736-9) MONO % (test code = 7.4 % 5905-5) EOS % (test code = 3.2 % 713-8) BASO % (test code = 0.5 % 706-2) GRAN MAT x10^3(ANC) 3.98 10*3/uL 1.99-6.95 (test code = 5439546732) IMM GRAN x10^3 (test 0.03 10*3/uL 0.00-0.06 code = 1236246372) LYMPH x10^3 (test code 3.27 10*3/uL 1.09-3.23 H = 731-0) MONO x10^3 (test code 0.61 10*3/uL 0.36-1.02 = 742-7) EOS x10^3 (test code = 0.26 10*3/uL 0.06-0.53 711-2) BASO x10^3 (test code 0.04 10*3/uL 0.01-0.09 = 704-7) Lab Interpretation Abnormal (test code = 71970-8) [facility] WITH [id number] 06:17:22 Test Item Value Reference Range Interpretation Comments WBC (test code = See_Comment [Automated 90-2) message] The sy stem which generated this result transmitted reference range : 4.20 - 10.70 10*3/?L. The reference range was not used to interpret this result as normal/abnormal . RBC (test code = See_Comment [Automated 099-8) message] The sy stem which generated this result transmitted reference range : 4.26 - 5.52 10*6/?L. The reference range was not used to interpret this result as normal/abnormal . HGB (test code = 14.5 g/dL 12.2-16.4 718-7) HCT (test code = 43.8 % 38.4-49.3 4544-3) MCV (test code = 93.2 fL 81.7-95.6 787-2) MCH (test code = 30.9 pg 26.1-32.7 785-6) MCHC (test code = 33.1 g/dL 31.2-35.0 786-4) RDW-SD (test code = 43.8 fL 38.5-51.6 18573-9) RDW-CV (test code = 12.7 % 12.1-15.4 788-0) PLT (test code = See_Comment L [Automated 777-3) message] The sy stem which generated this result transmitted reference range : 150 - 328 10*3/ ?L. The reference r dung was not used to interpret this result as normal/abnormal . MPV (test code = 9.9 fL 9.8-13.0 37735-5) NRBC/100 WBC (test See_Comment [Automat ed code = 7041792326) message] The system which generated this result transmitted reference range : 0.0 - 10.0 /100 WBCs. The refer ence range was not u sed to interpret th is result as normal/abnormal . NRBC x10^3 (test code <0.01 See_Comment [Auto mated = 2055730724) message] The s ystem which generated this result transmitted reference range : 10*3/?L. The reference range was not used to interpret this result as normal/abnormal . GRAN MAT (NEUT) % 48.6 % (test code = 770-8) IMM GRAN % (test code 0.40 % = 5454995481) LYMPH % (test code = 39.9 % 736-9) MONO % (test code = 7.4 % 5905-5) EOS % (test code = 3.2 % 713-8) BASO % (test code = 0.5 % 706-2) GRAN MAT x10^3(ANC) 3.98 10*3/uL 1.99-6.95 (test code = 4002677315) IMM GRAN x10^3 (test 0.03 10*3/uL 0.00-0.06 code = 2332918121) LYMPH x10^3 (test code 3.27 10*3/uL 1.09-3.23 H = 731-0) MONO x10^3 (test code 0.61 10*3/uL 0.36-1.02 = 742-7) EOS x10^3 (test code = 0.26 10*3/uL 0.06-0.53 711-2) BASO x10^3 (test code 0.04 10*3/uL 0.01-0.09 = 704-7) Lab Interpretation Abnormal (test code = 06787-6) [facility]"
[2021-10-10 02:44] LABS: Absolute Lymphocytes (CBC) 3.3 K/uL (0.7-4.9); Hematocrit 48.8 % (39.6-49.0); Lymphocytes % 48.3 % (15.3-44.8); MPV 7.3 fL (7.6-11.3); RBC Red Blood Cell Count 5.21 M/uL (4.33-5.43)
[2021-10-10 02:54] LABS: Potassium 3.8 mmol/L (3.5-5.1); Troponin High Sensitivity 8.5 pg/mL (<58.9)
--- NOTE | 2021-10-10 03:59 | EDPHYS ---
Physician Documentation [facility] Name: Philip Kim Age: 36 yrs Sex: Male : 1985 Arrival Date: 10/10/2021 Time: 01:55 Bed Treatment Private MD: ED Physician Germain Garcia HPI: 10/10 03:10 This 36 yrs old Male presents to ER via Ambulatory with complaints [facility] 03[facility]10 The patient or guardian reports chest pain that is located primarily in the anterior mh7 chest wall, left. The pain does not radiate. Associated signs and symptoms: Pertinent negatives: abdominal pain, cough, diaphoresis, dizziness, headache, lower extremity pain, lower extremity swelling, lightheadedness, nausea, near syncope, palpitations, recent travel, syncope, vomiting. The chest pain is described as sharp. Duration: The patient or guardian reports a single episode, that is now resolved. Modifying factors: The symptoms are alleviated by nothing. the symptoms are aggravated by emotionally stressful situations, after being arrested. Severity of pain: At its worst the pain was moderate today, in the emergency department the pain has resolved and did so while in waiting room. Brought to ER in police custody for blood draw then complained of chest pain.. Historical: - Allergies: 02:05 No Known Allergies; jb4 - PMHx: 02:05 CHF; HIV positive; Hep-c; jb4 - PSHx: 02:05 Heart Stent; jb4 - Immunization history:: Adult Immunizations not up to date. - Social history:: Smoking status: Patient denies any tobacco usage or history of. Patient/guardian denies using alcohol, street drugs. ROS: 03:10 Constitutional: Negative for fever, chills, and weight loss, Eyes: Negative for injury, mh7 pain, redness, and discharge, ENT: Negative for injury, pain, and discharge, Neck: Negative for injury, pain, and swelling, Respiratory: Negative for shortness of breath, cough, wheezing, and pleuritic chest pain, Abdomen/GI: Negative for abdominal pain, nausea, vomiting, diarrhea, and constipation, Back: Negative for injury and pain, : Negative for injury, bleeding, discharge, and swelling, MS/Extremity: Negative for injury and deformity, Skin: Negative for injury, rash, and discoloration, Neuro: Negative for headache, weakness, numbness, tingling, and seizure, Psych: Negative for depression, anxiety, suicide ideation, homicidal ideation, and hallucinations, Allergy/Immunology: Negative for hives, rash, and allergies, Endocrine: Negative for neck swelling, polydipsia, polyuria, polyphagia, and marked weight changes, Hematologic/Lymphatic: Negative for swollen nodes, abnormal bleeding, and unusual bruising. Exam: 03:10 Constitutional: This is a well developed, well nourished patient who is awake, alert, mh7 and in no acute distress. Head/Face: Normocephalic, atraumatic. Eyes: Pupils equal round and reactive to light, extra-ocular motions intact. Lids and lashes normal. Conjunctiva and sclera are non-icteric and not injected. Cornea within normal limits. Periorbital areas with no swelling, redness, or edema. Neck: Trachea midline, no thyromegaly or masses palpated, and no cervical lymphadenopathy. Supple, full range of motion without nuchal rigidity, or vertebral point tenderness. No Meningismus. 03:10 Cardiovascular: Regular rate and rhythm with a normal S1 and S2. No gallops, murmurs, or rubs. Normal PMI, no JVD. No pulse deficits. Respiratory: Lungs have equal breath sounds bilaterally, clear to auscultation and percussion. No rales, rhonchi or wheezes noted. No increased work of breathing, no retractions or nasal flaring. Abdomen/GI: Soft, non-tender, with normal bowel sounds. No distension or tympany. No guarding or rebound. No evidence of tenderness throughout. Back: No spinal tenderness. No costovertebral tenderness. Full range of motion. Skin: Warm, dry with normal turgor. Normal color with no rashes, no lesions, and no evidence of cellulitis. MS/ Extremity: Pulses equal, no cyanosis. Neurovascular intact. Full, normal range of motion. Neuro: Awake and alert, GCS 15, oriented to person, place, time, and situation. Cranial nerves II-XII grossly intact. Motor strength 5/5 in all extremities. Sensory grossly intact. Cerebellar exam normal. Normal gait. Psych: Awake, alert, with orientation to person, place and time. Behavior, mood, and affect are within normal limits. 03:10 Chest/axilla: Inspection: normal, Palpation: tenderness, that is moderate, of the anterior aspect of left upper chest, that totally reproduces the patient's complaints, Axilla: are normal, Lymph nodes: lymphadenopathy is not appreciated. Vital Signs: 02:17 BP 138 / 83; Pulse 87; Resp 16; Temp 98.1(TE); Pulse Ox 98% on R/A; Height 5 ft. 9 in. jb4 (175.26 cm); 03:40 BP 149 / 104; Resp 16; jb4 MDM: 03:56 Differential diagnosis: acute myocardial infarction, acute pericarditis, anxiety, mh7 coronary artery disease chest wall pain, congestive heart failure costochondritis, esophagitis, gastritis, gastroesophageal reflux disease (GERD), pericarditis, pneumonia, pneumothorax. HEART Score: History: Slightly Suspicious (0), ECG: Non specific repolarization disturbance / LBTB / PM (1), Age: < or = 45 years (0), Risk Factors: No Risk Factors Known (0), Troponin: < or = 1 x Normal Limit (0), Total Score = 1. Data reviewed: vital signs, nurses notes, old medical records, lab test result(s), cardiac enzymes, CBC, electrolytes, EKG, radiologic studies, plain films. Data interpreted: Pulse oximetry: on room air is 98 %. Interpretation: normal. Counseling: I had a detailed discussion with the patient and/or guardian regarding: the historical points, exam findings, and any diagnostic results supporting the discharge/admit diagnosis, the presence of at least one elevated blood pressure reading (>120/80) during this emergency department visit, lab results, radiology results, the need for outpatient follow up, to return to the emergency department if symptoms worsen or persist or if there are any questions or concerns that arise at home. Response to treatment: the patient's symptoms have resolved after treatment, the patient's blood pressure is in an acceptable range, mental status has returned to baseline, the patient no longer shows bradycardia, the patient is not short of breath, the patient is not tachycardic, the patient's pain is gone, the patient's temperature has normalized. 03:58 Patient medically screened. mh7 10/10 01:56 Order name: Basic Metabolic Panel; Complete Time: 03:51 la1 10/10 01:56 Order name: CBC with Diff; Complete Time: 03:01 10/10 01:56 Order name: Troponin HS; Complete Time: 03:51 10/10 01:56 Order name: XRAY Chest (1 view) 10/10 03:20 Order name: NT PRO-BNP; Complete Time: 03:51 EDMS 10/10 01:56 Order name: EKG; Complete Time: 01:56 10/10 01:56 Order name: Cardiac monitoring; Complete Time: 02:36 10/10 01:56 Order name: EKG - Nurse/Tech; Complete Time: 02:36 10/10 01:56 Order name: Labs collected and sent; Complete Time: 02:04 10/10 01:56 Order name: O2 Per Protocol; Complete Time: 02:36 10/10 01:56 Order name: O2 Sat Monitoring; Complete Time: 02:36 Administered Medications: No medications were administered Disposition Summary: 10/10/21 03:58 Discharge [facility] Symptoms: have improved [facility] Condition: Stable [facility] Diagnosis - Chest pain, unspecified [facility] - With: Private Physician - When: 1 - 2 days - Reason: Worsening of condition, Recheck today's complaints, Continuance of care, Re-evaluation by your physician [facility]up[facility] - With: Gerry Edwards MD - When: 1 - 2 days - Reason: Worsening of condition, Recheck today's complaints Discharge Instructions: - Discharge Summary Sheet [facility] - Nonspecific Chest Pain, Adult, [id number] [facility] Forms: - Medication Reconciliation Form [facility] - Thank You Letter [facility] - Antibiotic Education [facility] - Prescription Opioid Use [facility] Signatures: Dispatcher [employer] EDMS Stanford Castañeda, JAVASCRIPT SOFTWARE ENGINEER-C JAVASCRIPT SOFTWARE ENGINEER-Cla1 Sukumar Martin, RN RN jb4 Germain Garcia MD MD 7 Corrections: (The following items were deleted from the chart) 02:06 02:05 PSHx: None; peter green 03:20 03:03 PROBNP+C.LAB.BRZ ordered. EDMS EDMS
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
[2021-10-10 04:20] VITALS: TEMP 98.1; O2SAT 98
[2021-10-10 04:22] VITALS: BP 149/104
--- NOTE | 2021-10-10 13:32 | EKG ---
Test Date: 2021-10-10 Test Time: 02:30:31 Classroom Coordinator: SHON MEASUREMENT RESULTS: Intervals: Rate: 87 AK: 160 QRSD: 100 QT: 356 QTc: 428 [place]: P: 75 AK: 160 QRS: 99 T: 38 INTERPRETIVE STATEMENTS: Normal sinus rhythm Rightward axis Borderline ECG Compared to ECG 10/03/2019 02:25:45 Right-axis deviation now present Electronically Signed On 10-10-21 13:31:40 CDT by Michele Ruiz
--- NOTE | 2021-10-10 14:55 | RAD REPORT ---
EXAM DESCRIPTION: RAD - Chest Single View - 10/10/2021 2:45 am CLINICAL HISTORY: 36 years, Male, CHEST PAIN COMPARISON: None. FINDINGS: Single view of the chest was obtained portable. No prior films are available for compariso n. The lung volume is decreased. The cardiomediastinal silhouette demonstrate to be unremarkable. T he heart is not enlarged. The thoracic aorta is unremarkable. Minimal linear densities within the dionna g bases correspond to most likely atelectasis. Costophrenic angles are sharp. No areas of consolida tion or masses are seen. The rest of the soft tissue and bony structures demonstrate to be unremark able. IMPRESSION: Minimal linear densities within the lung bases correspond to most likely atelectasis. No focal areas of acute airspace disease. Electronically signed by: Benitez Dangelo MD 10/10/2021 3:21 AM CDT Due to temporary technical issues with the PACS/Fluency reporting system, reports are being signed by the in house radiologist without review as a courtesy to ensure prompt reporting. The interpreting r adiologist is fully responsible for the content of the report.
== END 2021-10-10 04:15 | disposition home or self-care (01) ==
LOC: ER 01:54
DX: R07.9 Chest pain, unspecified (principal); B20 Human immunodeficiency virus [HIV] disease; I50.9 Heart failure, unspecified; B19.20 Unspecified viral hepatitis C without hepatic coma
CPT/HCPCS: 36415; 71045; 80048; 83880; 84484; 85025; 93005; 99283

== ENCOUNTER 2025-01-27 20:58 | Emergency (ER) | payer OTHER, SELFPAY ==
[2025-01-27 22:02] LABS: Absolute Lymphocytes (CBC) 2.6 K/uL (0.7-4.9); Hematocrit 41.6 % (39.6-49.0); Hemoglobin 14.1 g/dL (13.6-17.9); MCH 30.9 pg (27.0-35.0); MCHC 33.8 g/dL (32.0-36.0); MCV 91.5 fL (80-100); MPV 7.9 fL (7.6-11.3); Nucleated RBC Absolute Count 0.0 (0-0); Nucleated Red Blood Cells % 0.1 % (0-0); RBC Red Blood Cell Count 4.55 M/uL (4.33-5.43); White Blood Count 5.60 thou/uL (4.3-10.9)
[2025-01-27 22:41] LABS: ALT/SGPT 91.0 U/L (16-61); AST/SGOT 45.0 U/L (15-37); Albumin 3.9 g/dL (3.4-5.0); Albumin/Globulin Ratio 1.3 (1.1-1.8); Alkaline Phosphatase 45.0 U/L (45-117); Anion Gap 8.0 mEq/L (5.0-15.0); BUN Blood Urea Nitrogen 17.0 mg/dL (7-18); Globulin 3.1 g/dL (2.3-3.5); Glucose Level 162.0 mg/dL (74-106); Potassium 3.0 mEq/L (3.5-5.1)
--- NOTE | 2025-01-27 22:45 | RAD REPORT ---
EXAM: CT Head Brain Wo Cont HISTORY: headache, neck swelling, hep C COMPARISON: None TECHNIQUE: Multiple contiguous axial images were obtained for a CT of the brain without contrast. Sag ittal and coronal reformats were performed. One or more of the following dose reduction techniques were used: Automated exposure control, adjus tment of the mA and kV according to patient size, and iterative reconstruction. Unless otherwise specified, incidental findings do not require dedicated imaging follow-up. FINDINGS: No evidence of hydrocephalus, intracranial hemorrhage, or extra-axial fluid collection. The brain is normal in morphology. The calvarium is intact. The visualized paranasal sinuses and mastoid air cells are essentially clear . IMPRESSION: No evidence of acute intracranial abnormality.
--- NOTE | 2025-01-27 22:50 | RAD REPORT ---
EXAM: CT Soft Tissue Neck W/Contr INDICATION: right post cerv lymph node vs other swelling. ? Source TECHNIQUE: Helical CT examination of the neck with IV contrast. Sagittal and coronal reformations wer e generated. This exam was performed according to our departmental dose-optimization program, which includes automated exposure control, adjustment of the mA and/or kV according to patient size and/or use of iterative reconstruction technique. COMPARISON: None. FINDINGS: Mucosal spaces: Nasopharynx, oropharynx, oral cavity, larynx and hypopharynx are normal. No suspiciou s masses. Epiglottis is normal in configuration. True vocal cords cords are normally situated. Piriform sinuses are well-aerated. Lymph Nodes: No pathologic appearing cervical lymph nodes. Salivary Glands: Unremarkable. Thyroid Gland: Normal Included Intracranial Structures: Normal Included Orbits: Normal Paranasal Sinuses: Predominantly clear Tympanomastoid Cavities: Normal Vascular Structures: Normal Osseous Structures: No acute osseous abnormality. Included Lung Apices: Normal IMPRESSION: Normal contrast-enhanced CT of the neck.
--- NOTE | 2025-01-27 22:52 | ER ---
Nurse's Notes [facility] Name: Philip Kim Age: 39 yrs Sex: Male : 1985 Arrival Date: 01/27/2025 Time: 20:58 Bed 14 Private MD: Diagnosis: Headache, lymph node swelling, possible dental abscess Presentation: 01/27 21:04 Chief complaint: Patient states: I ve been getting these dizzy spells for about two bm8 weeks taking OTC meds to help with that but for about a week now I have had this naggy continuous headache and i developed a lump on the right side of my neck. Coronavirus screen: Vaccine status: Patient reports receiving the 2nd dose of the covid vaccine. At this time, the client does not indicate any symptoms associated with coronavirus-19. Ebola Screen: Patient negative for fever greater than or equal to 101.5 degrees Fahrenheit, and additional compatible Ebola Virus Disease symptoms Patient denies exposure to infectious person. Patient denies travel to an Ebola-affected area in the 21 days before illness onset. No symptoms or risks identified at this time. Initial Sepsis Screen: Does the patient meet any 2 criteria? No. Patient's initial sepsis screen is negative. Does the patient have a suspected source of infection? No. Patient's initial sepsis screen is negative. Risk Assessment: Do you want to hurt yourself or someone else? Patient reports no desire to harm self or others. Onset of symptoms was January 12, 2025. 21:04 Method Of Arrival: Ambulatory bm8 21:04 Acuity: REJI 3 bm8 Triage Assessment: 21:06 Headache History: Denies prior headaches. General: Appears in no apparent distress. bm8 comfortable, Behavior is calm, cooperative, appropriate for age. Pain: Complains of pain in right frontal area, right side of the back of head, right temporal area, right occipital area, right ear and right base of the skull Pain currently is 8 out of 10 on a pain scale. Pain began gradually, Also complains of no other associated symptoms. EENT: No deficits noted. No signs and/or symptoms were reported regarding the EENT system. Neuro: Level of Consciousness is awake, alert, obeys commands, Oriented to person, place, time, situation, Appropriate for age Tower Loader Operator are equal bilaterally Moves all extremities. Full function Gait is steady, Speech is normal, Facial symmetry appears normal, Reports dizziness, headache in right parietal area, occipital area. Cardiovascular: No deficits noted. Respiratory: No deficits noted. GI: No deficits noted. : No deficits noted. Derm: No deficits noted. Musculoskeletal: No deficits noted. Historical: - Allergies: 21:06 No Known Allergies; bm8 - Home Meds: 21:06 None [Active]; bm8 - PMHx: 21:06 CHF; Hep-c; HIV positive; bm8 - PSHx: 21:06 heart stent; bm8 - Immunization history:: Adult Immunizations up to date. - Infectious Disease History:: Denies. - Social history:: Smoking status: Patient reports the use of cigarette tobacco products, smokes two packs cigarettes per day. Patient/guardian denies using alcohol, street drugs. Screenin:22 [facility] ED Fall Risk Assessment (Adult) History of falling in the last 3 months, rg5 including since admission No falls in past 3 months (0 pts) Confusion or Disorientation No (0 pts) Intoxicated or Sedated No (0 pts) Impaired Gait No (0 pts) Mobility Assist Device Used No (0 pt) Altered Elimination No (0 pt) Score/Fall Risk Level 0 - 2 = Low Risk Oriented to surroundings, Maintained a safe environment, Hourly rounding (assess needs \T\ fall precautionary measures) done. Abuse screen: Denies threats or abuse. Nutritional screening: No deficits noted. Tuberculosis screening: No symptoms or risk factors identified. Assessment: 21:22 General: Appears in no apparent distress. Behavior is calm, cooperative, appropriate rg5 for age. Pain: Complains of pain in head Quality of pain is described as aching. Neuro: Level of Consciousness is awake, alert, obeys commands, Oriented to person, place, time, situation, Reports dizziness, headache. Cardiovascular: Denies chest pain, Patient's skin is warm and dry. Respiratory: Airway is patent Respiratory effort is even, unlabored. GI: Abdomen is flat, non-distended. : No signs and/or symptoms were reported regarding the genitourinary system. EENT: No signs and/or symptoms were reported regarding the EENT system. Derm: Skin is intact, Skin is dry, Skin is normal, Skin temperature is warm. Musculoskeletal: Circulation, motion, and sensation intact. Range of motion: intact in all extremities. 22:22 General: received report from staff nurse ismael, all questions answered. kt5 22:25 Reassessment: Patient appears in no apparent distress at this time. Patient and/or kt5 family updated on plan of care and expected duration. Pain level reassessed. Patient is alert, oriented x 3, equal unlabored respirations, skin warm/dry/pink. Patient states symptoms have improved. General: pt back from ct, tolerated well. Vital Signs: 21:04 BP 137 / 83; Pulse 81; Resp 18; Temp 97.7; Pulse Ox 100% ; Weight 74.84 kg; Height 5 bm8 ft. 9 in. ; Pain 8/10; 21:22 BP 125 / 86; Pulse 67; Resp 18; Pulse Ox 97% ; Pain 7/10; rg5 22:30 BP 113 / 68; Pulse 66; Resp 18; Pulse Ox 99% ; Pain 0/10; kt5 21:04 Body Mass Index 24.37 (74.84 kg, 175.26 cm) bm8 21:04 Pain Scale: Adult bm8 21:22 Pain Scale: Adult rg5 22:30 Pain Scale: Adult kt5 ED Course: 21:02 Patient arrived in ED. gm2 21:06 Triage completed. bm8 21:06 Arm band placed on right wrist. bm8 21:09 Ismael Garcia, JESSI is Primary Nurse. rg5 21:17 Ronni Isaacs MD is Attending Physician. sp3 21:22 Patient has correct armband on for positive identification. Bed in low position. Call rg5 light in reach. Side rails up X 1. Door closed. Noise minimized. 21:45 First set of blood cultures drawn by me. ts3 21:56 Initial lab(s) drawn, by laborer beam house, sent to lab. Inserted saline lock: 18 gauge in right ts3 forearm, using aseptic technique. Blood collected. Flushed with 10 mL NS. 22:00 Second set of blood cultures drawn by me. ts3 22:23 CT Head Brain wo Cont In Process Unspecified. EDMS 22:23 CT Soft Tissue Neck W/contr In Process Unspecified. EDMS 23:08 Provided Education on: follow up and meds. kt5 23:08 No provider procedures requiring assistance completed. IV discontinued, intact, kt5 bleeding controlled, No redness/swelling at site. Pressure dressing applied. Administered Medications: 23:00 Drug: Potassium PO Effervescent Tablet 50 mEq PO once; dissolve in 4 ounces of water or kt5 juice Route: PO; 23:09 Follow up: Response: No adverse reaction kt5 Medication: 21:22 VIS not applicable for this client. rg5 Outcome: 22:52 Discharge ordered by MD. oliveros 23:09 Patient left the ED. kt5 Signatures: Dispatcher [employer] EDMS Ronni Isaacs MD MD sp3 Ashley Matthews 2 Yuval Delgado, RN RN bm8 Ismael Garcia RN RN rg5 Shirin Schmidt 3 Johnna Kim, RN RN kt5
--- NOTE | 2025-01-27 22:52 | EDPHYS ---
Physician Documentation [facility] Name: Philip Kim Age: 39 yrs Sex: Male : 1985 Arrival Date: 01/27/2025 Time: 20:58 Bed 14 Private MD: ED Physician Ronni Isaacs HPI: 01/27 21:36 This 39 yrs old Male presents to ER via Ambulatory with complaints of Headache, Neck sp3 Problem, Dizziness. 21:36 39-year-old male with history of CHF, hepatitis C, (chart says HIV positive however sp3 patient denies), presents to the ED with a 10-day history of headache and right sided neck pain and swelling. Patient states he has a swelling or bump on his neck. He denies any fever, URI symptoms, sore throat, chest pain, shortness of breath, cough, abdominal pain, nausea, vomit, diarrhea, syncope, near syncope, no sick contact, travel history, or any other signs or symptoms on ROS at this time.. Historical: - Allergies: 21:06 No Known Allergies; bm8 - Home Meds: 21:06 None [Active]; bm8 - PMHx: 21:06 CHF; Hep-c; HIV positive; bm8 - PSHx: 21:06 heart stent; bm8 - Immunization history:: Adult Immunizations up to date. - Infectious Disease History:: Denies. - Social history:: Smoking status: Patient reports the use of cigarette tobacco products, smokes two packs cigarettes per day. Patient/guardian denies using alcohol, street drugs. ROS: 21:37 Constitutional: Negative for fever, chills, and weight loss, Eyes: Negative for injury, sp3 pain, redness, and discharge, Cardiovascular: Negative for chest pain, palpitations, and edema, Respiratory: Negative for shortness of breath, cough, wheezing, and pleuritic chest pain, Abdomen/GI: Negative for abdominal pain, nausea, vomiting, diarrhea, and constipation, Back: Negative for injury and pain, MS/Extremity: Negative for injury and deformity, Skin: Negative for injury, rash, and discoloration, Psych: Negative for depression, anxiety, suicide ideation, homicidal ideation, and hallucinations, Allergy/Immunology: Negative for hives, rash, and allergies, Endocrine: Negative for neck swelling, polydipsia, polyuria, polyphagia, and marked weight changes, Hematologic/Lymphatic: Negative for swollen nodes, abnormal bleeding, and unusual bruising, 21:37 All other systems are negative, Exam: 21:38 Constitutional: This is a well developed, well nourished patient who is awake, alert, sp3 and in no acute distress. Head/Face: Normocephalic, atraumatic. Eyes: Pupils equal round and reactive to light, extra-ocular motions intact. Lids and lashes normal. Conjunctiva and sclera are non-icteric and not injected. Cornea within normal limits. Periorbital areas with no swelling, redness, or edema. Chest/axilla: Normal chest wall appearance and motion. Nontender with no deformity. No lesions are appreciated. Cardiovascular: Regular rate and rhythm with a normal S1 and S2. No gallops, murmurs, or rubs. Normal PMI, no JVD. No pulse deficits. Respiratory: Lungs have equal breath sounds bilaterally, clear to auscultation and percussion. No rales, rhonchi or wheezes noted. No increased work of breathing, no retractions or nasal flaring. Abdomen/GI: Soft, non-tender, with normal bowel sounds. No distension or tympany. No guarding or rebound. No evidence of tenderness throughout. Back: No spinal tenderness. No costovertebral tenderness. Full range of motion. Skin: Warm, dry with normal turgor. Normal color with no rashes, no lesions, and no evidence of cellulitis. MS/ Extremity: Pulses equal, no cyanosis. Neurovascular intact. Full, normal range of motion. Neuro: Awake and alert, GCS 15, oriented to person, place, time, and situation. Cranial nerves II-XII grossly intact. Motor strength 5/5 in all extremities. Sensory grossly intact. Cerebellar exam normal. Normal gait. Psych: Awake, alert, with orientation to person, place and time. Behavior, mood, and affect are within normal limits. 21:38 ENT: Poor dentition overall. 21:38 Neck: Posterior auricular lymph node swelling noted on the right side., Vital Signs: 21:04 BP 137 / 83; Pulse 81; Resp 18; Temp 97.7; Pulse Ox 100% ; Weight 74.84 kg; Height 5 bm8 ft. 9 in. ; Pain 8/10; 21:22 BP 125 / 86; Pulse 67; Resp 18; Pulse Ox 97% ; Pain 7/10; rg5 22:30 BP 113 / 68; Pulse 66; Resp 18; Pulse Ox 99% ; Pain 0/10; kt5 21:04 Body Mass Index 24.37 (74.84 kg, 175.26 cm) bm8 21:04 Pain Scale: Adult bm8 21:22 Pain Scale: Adult rg5 22:30 Pain Scale: Adult kt5 MDM: 21:21 Medical Screening Exam initiated sp3 21:38 Data reviewed: vital signs, nurses notes, lab test result(s), radiologic studies. ED sp3 course: 39-year-old male with headache and neck pain and swelling. Differential diagnosis includes infection of unknown etiology, sinus infection, dental origin infection, other lymphadenopathy, other primary lymph node pathology, among others. Workup will include CT scan of the head, general labs including cultures, CT scan of the neck soft tissue and general supportive care. Vital signs are normal. Patient is afebrile. Disposition pending workup and patient course.. 22:52 ED course: Workup negative. Will place on Augmentin prophylactically for probable sp3 dental origin infection.. 01/27 21:36 Order name: Blood Culture Adult (2) sp3 01/27 21:36 Order name: CBC with Diff; Complete Time: 22:42 sp3 01/27 21:36 Order name: CMP; Complete Time: 22:42 sp3 01/27 21:36 Order name: CT Head Brain wo Cont; Complete Time: 22:51 sp3 01/27 21:36 Order name: CT Soft Tissue Neck W/contr; Complete Time: 22:51 sp3 01/27 21:36 Order name: IV Saline Lock - Large Bore; Complete Time: 21:56 sp3 01/27 21:36 Order name: Labs collected and sent; Complete Time: 21:56 sp3 01/27 21:36 Order name: Vital Signs; Complete Time: 21:49 sp3 Administered Medications: 23:00 Drug: Potassium PO Effervescent Tablet 50 mEq PO once; dissolve in 4 ounces of water or kt5 juice Route: PO; 23:09 Follow up: Response: No adverse reaction kt5 Disposition Summary: 01/27/25 22:52 Discharge Ordered Notes: Location: Home sp3 Condition: Stable sp3 Diagnosis - Headache, lymph node swelling, possible dental abscess sp3 Followup: sp3 - With: Private Physician - When: Upon discharge from the Emergency Department - Reason: Continuance of care Discharge Instructions: - Discharge Summary Sheet sp3 - Lymphadenopathy sp3 Forms: - Medication Reconciliation Form sp3 - Antibiotic Education sp3 - Prescription Opioid Use sp3 - Patient Portal Instructions sp3 - Leadership Thank You Letter sp3 Prescriptions: - Augmentin 875-125 mg Oral Tablet - take 1 tablet ORAL route every 12 hours for 10 days; 20 tablet; Refills: 0, sp3 Product Selection Permitted - Diclofenac Sodium 75 mg Oral Tablet Sustained Release - take 1 tablet ORAL route 2 times per day; 30 tablet; Refills: 0, Product sp3 Selection Permitted Signatures: Dispatcher [employer] Ronni Peralta MD MD sp3 Yuval Delgado, RN RN bm8 Johnna Kim RN RN kt5
[2025-01-27] MEDS ORDERED: POTASSIUM 25 MEQ EFFERV TAB ONE (22:55)
[2025-01-28 00:21] VITALS: BP 113/68; TEMP 97.7; O2SAT 99
== END 2025-01-27 23:09 | disposition home or self-care (01) ==
LOC: ER 20:58
DX: R51.9 Headache, unspecified (principal); R59.9 Enlarged lymph nodes, unspecified; F17.210 Nicotine dependence, cigarettes, uncomplicated; Z21 Asymptomatic human immunodeficiency virus [HIV] infection status; Z86.19 Personal history of other infectious and parasitic diseases; Z95.5 Presence of coronary angioplasty implant and graft
CPT/HCPCS: 87040 ×2; 85025; 36415; 80053; 70450; 70491; 99284; Q9967